=== PATIENT | male | born 1970 | race Caucasian/White ===

== ENCOUNTER 2017-03-18 16:56 | Emergency (ER) | payer OTHER ==
[~2017-03-18] VITALS: Ht 182.9 cm; Wt 115.0 kg
[~2017-03-18 16:56] MED LIST: 1-ME1LIQ PO; ACET325 PO; ALFU10TA2 PO; ASPI325T PO; ATOR80TA PO; BACL10TA PO; FISH1000 PO; GABA300C3 PO; LEVE750T8 PO; NAPR-571 PO; OMEP20TA PO; POTA1TAB4 PO; RISP2TAB35 PO; SERT-129 PO; TAB-TAB PO; TOPA200T4 PO
[2017-03-18 16:58] VITALS: BP 139/84; PULSE 80; RESP 20; TEMP 97.7; O2SAT 97
--- NOTE | 2017-03-18 17:52 | PD ---
Physical Exam Time Seen by Provider: 17:51 Narrative 46yo M c/o BOSWELL x 1-1/2 weeks. Hx of shunt. Patient seen in triage. VS reviewed. Awaiting bed placement. Data Data Last Documented VS Vital Signs Date Time Temp Pulse Resp B/P Pulse Ox O2 Delivery O2 Flow Rate FiO2 03/18/17 16:58 97.7 80 20 139/84 97 Room Air MDM Supervised Visit with JADEN: Deirdre Novoa Mar 18, 2017 17:52
[2017-03-18 19:45] VITALS: BP 154/92; PULSE 75; RESP 20; O2SAT 97
[2017-03-18 19:47] VITALS: RESP 20; O2SAT 98
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
[2017-03-18] MEDS ORDERED: PROCHLORPERAZINE INJ 10 MG/2 ML VIAL IV PUSH ONE (20:15)
[2017-03-18] MEDS ORDERED: traMADol HCL 50 MG TAB PO ONE (20:15)
[2017-03-18] MEDS ORDERED: SODIUM CHLORID 0.9% 500 ML INJ 500 ML IV ONE (20:15)
--- NOTE | 2017-03-18 20:15 | RADRPT ---
EXAM DATE/TIME: 03/18/2017 20:05 [facility] COMPARISON: No previous studies available for comparison. INDICATIONS : Headache, radiating to right side of neck and right shoulder. RADIATION DOSE: 45.38 CTDIvol (mGy) MEDICAL HISTORY : Carcinoma, breast. Blind SURGICAL HISTORY : Splenectomy. Shunt ENCOUNTER: Initial ACUITY: 1 day PAIN SCALE: 0/10 LOCATION: cranial TECHNIQUE: Multiple contiguous axial images were obtained of the head. Using automated exposure control and adj ustment of the mA and/or kV according to patient size, radiation dose was kept as low as reasonably a chievable to obtain optimal diagnostic quality images. DICOM format image data is available electro nically for review and comparison. FINDINGS: There are large areas of encephalomalacia involving the inferior frontal lobes and temporal lobe s left greater than right. There is mild ex vacuo change on the left. There is a shunt catheter seen extending via a right parietal approach with the tip in the right lateral ventricle. There is no acut e hemorrhage, mass effect or midline shift. Mild atrophic changes present. The third ventricle and fo urth ventricle are within normal limits. The posterior fossa is unremarkable. There are remote postsu rgical changes status lateral craniotomy. CONCLUSION: 1. No acute hemorrhage or mass effect. 2. Large areas of encephalomalacia involving the frontal and temporal lobes left greater than right. 3. Shunt catheter in place with no evidence of hydrocephalus. 4. Comparison with any old outside studies would be helpful. Linwood Hodges MD on March 18, 2017 at 20:10 Board Certified Radiologist. This report was verified electronically.
[2017-03-18] MEDS ORDERED: OMEP20TA PO (20:17)
[2017-03-18] MEDS ORDERED: SERT-129 PO (20:17)
[2017-03-18] MEDS ORDERED: TOPA100T11 PO (20:17)
[2017-03-18] MEDS ORDERED: RISP1 PO (20:17)
[2017-03-18] MEDS ORDERED: POTA1TAB4 PO (20:17)
[2017-03-18] MEDS ORDERED: NAPR250T PO (20:19)
[2017-03-18] MEDS ORDERED: MULT1TAB46 PO (20:22)
[2017-03-18] MEDS ORDERED: ASPI325T27 PO (20:22)
[2017-03-18] MEDS ORDERED: ATOR40TA16 PO (20:22)
[2017-03-18] MEDS ORDERED: BACL10TA PO (20:22)
[2017-03-18] MEDS ORDERED: GABA600T PO (20:22)
[2017-03-18] MEDS ORDERED: MAPA325T PO (20:25)
[2017-03-18] MEDS ORDERED: ALFU10TA3 PO (20:25)
[2017-03-18] MEDS ORDERED: AMLO10TA2 PO (20:25)
[2017-03-18 21:01] LABS: AUTOMATED NEUTROPHIL # 4.4 TH/MM3 (1.8-7.7); BASOPHIL # 0.1 TH/MM3 (0-0.2); BASOPHIL % 1.3 % (0.0-2.0); EOSINOPHIL # 0.2 TH/MM3 (0-0.4); EOSINOPHIL % 1.9 % (0.0-4.0); HEMATOCRIT 41.2 % (39.0-51.0); HEMO FLAGS DIFF FINAL; LYMPHOCYTE # 4.7 TH/MM3 (1.0-4.8); MEAN CELL VOLUME 81.6 FL (80.0-100.0); MEAN CORPUSCULAR HEMOGLOBIN 28.2 PG (27.0-34.0); MEAN CORPUSCULAR HGB CONC 34.6 % (32.0-36.0); MONO % 11.6 % (0.0-8.0); NEUT % 41.2 % (16.0-70.0); PLATELET COUNT 374 TH/MM3 (150-450); RED BLOOD COUNT 5.05 MIL/MM3 (4.50-5.90); RED CELL DISTRIBUTION WIDTH 15.3 % (11.6-17.2); WHITE BLOOD COUNT 10.6 TH/MM3 (4.0-11.0)
[2017-03-18 21:09] LABS: APTT (PATIENT) 27.6 SEC (24.3-30.1); PROTHROMBIN TIME - PATIENT 10.6 SEC (9.8-11.6)
[2017-03-18 21:10] LABS: ALT (GPT) 32 U/L (12-78)
[2017-03-18 21:12] LABS: ALKALINE PHOSPHATASE 93 U/L (45-117); TOTAL BILIRUBIN ADULT 0.4 MG/DL (0.2-1.0)
[2017-03-18 21:14] LABS: ANION GAP 9 MEQ/L (5-15); AST (GOT) 25 U/L (15-37); BICARBONATE 25.4 MEQ/L (21.0-32.0); BLOOD UREA NITROGEN 11 MG/DL (7-18); CHLORIDE 103 MEQ/L (98-107); GLOMERULAR FILTRATION RATE 111 ML/MIN (>89); POTASSIUM 3.6 MEQ/L (3.5-5.1); SODIUM (NA) 137 MEQ/L (136-145)
--- NOTE | 2017-03-19 17:22 | EKG ---
Date Performed: 03/18/2017 Time Performed: 19:58:20 PTAGE: 46 years EKG: Sinus rhythm NORMAL ECG PREVIOUS TRACING 06/23/2000 @ 20.25 Compared to prior tracing no significant change DOCTOR: Sp Jean Baptiste Interpretating Date/Time 03/19/2017 17:20:24
== END 2017-03-18 22:34 | disposition home or self-care (01) ==
LOC: NEPE 16:56
DX: G44.89 Other headache syndrome (principal); M54.2 Cervicalgia; R19.7 Diarrhea, unspecified; I10 Essential (primary) hypertension; E11.9 Type 2 diabetes mellitus without complications; E78.5 Hyperlipidemia, unspecified; Z87.820 Personal history of traumatic brain injury; Z87.39 Personal history of other diseases of the musculoskeletal system and connective tissue; Z86.59 Personal history of other mental and behavioral disorders; Z87.19 Personal history of other diseases of the digestive system
CPT/HCPCS: 70450; 80053; 85025; 85610; 85730; 86140; 93005; 96374; 99285; J0780; J7040